=== PATIENT | female | born 1950 | race Hispanic/Latino ===

== ENCOUNTER 2019-10-14 06:56 | Observation (INO) | payer OTHER ==
[2019-10-11 13:02] VITALS: BP 163/57
[2019-10-11 13:12] LABS: APPEARANCE,URINE Clear (CLEAR); BILIRUBIN,URINE Negative (NEGATIVE); COLOR,URINE Dark Yellow (YELLOW); GLUCOSE, URINE (UA) Negative (NEGATIVE); KETONES,URINE Negative (NEGATIVE); LEUKOCYTE ESTERASE ,URINE Negative (NEGATIVE); NITRATE,URINE Negative (NEGATIVE); OCCULT BLOOD,URINE Negative (NEGATIVE); PROTEIN,URINE Negative (NEGATIVE)
[2019-10-11 13:25] LABS: BACTERIA,URINE Rare /HPF (None Seen); MUCUS,URINE Few LPF (None Seen); RBC,URINE 0-1 /HPF (0-1); SQUAMOUS EPITHELIAL CELL,UR Moderate /HPF (0-2); WBC,URINE 0-1 /HPF (0-1)
--- NOTE | 2019-10-11 14:30 | NUR ---
RE: NO BLOOD TRANSFUSIONS CALLED DR HAMEED AND INFORMED HIM THAT PATIENT IS REFUSING BLOOD TRANSFUSIONS AND PT'S HGB 13.2/HCT 39.0. PER DR HAMEED, OK TO PROCEED WITH SCHEDULED PROCEDURE.
[2019-10-14] VITALS (22 sets, daily range): BP systolic 121–146; BP diastolic 51–75
[~2019-10-14] VITALS: Ht 161.3 cm; Wt 78.3 kg
[2019-10-14] MEDS: CEFAZOLIN SODIUM 1 GM VIAL IVP SCH ×4 (05:00→22:53)
[~2019-10-14 06:56] MED LIST: BIMA12.5OS OU; ESCI20TA36 PO; ESTR-8 PO; MINE5OIN OU; POLY10DR31 OU
[2019-10-14] MEDS ORDERED: SODIUM CHLORIDE 0.9% 1000ML 1,000 ML IV ONE (07:35)
[2019-10-14] MEDS ORDERED: CEFAZOLIN SODIUM 1 GM VIAL ONE ×4 (07:41)
--- NOTE | 2019-10-14 07:45 | NUR ---
SKIN LEFT KNEE WIPED WITH PAWEL BY BERHANE
[2019-10-14] MEDS ORDERED: TRANEXAMIC ACID 1000MG/10ML ONE (08:33)
[2019-10-14] MEDS ORDERED: ONDANSETRON HCL 4 MG/2 ML VIAL ONE (08:38)
[2019-10-14] MEDS ORDERED: LIDOCAINE PF 2% 5ML ABBOJECT ONE (08:38)
[2019-10-14] MEDS ORDERED: MIDAZOLAM HCL 1 MG/ML 2ML VIAL ONE (08:38)
[2019-10-14] MEDS ORDERED: DEXAMETHASONE SOD PHOSPHATE 10MG/ML 1ML VIAL ONE (08:38)
[2019-10-14] MEDS ORDERED: PROPOFOL 10 MG/ML 20ML VIAL IV ONE (08:38)
[2019-10-14] MEDS ORDERED: ROCURONIUM 10MG/1ML SYR 10 MG/ML ML ONE ×2 (08:39→09:25)
[2019-10-14] MEDS ORDERED: FENTANYL CITRATE PF 50 MCG/1 ML 2ML VIAL ONE ×2 (08:39→09:24)
[2019-10-14] MEDS ORDERED: CALCIUM CARBONATE 500 MG TABLET PO PRN (10:45)
[2019-10-14] MEDS ORDERED: OXYCODONE HCL 5 MG TAB PO PRN (10:45)
[2019-10-14] MEDS ORDERED: FERROUS FUMARATE 324 MG TABLET PO PRN (10:45)
[2019-10-14] MEDS ORDERED: POTASSIUM CHLORIDE 10% ELIXIR 20 MEQ/15 ML UDCUP PO PRN (10:45)
[2019-10-14] MEDS ORDERED: ONDANSETRON HCL 4 MG/2 ML VIAL IVP PRN (10:45)
[2019-10-14] MEDS ORDERED: LIDOCAINE HCL-MPF 1% 2ML VIAL IV PRN (10:45)
[2019-10-14] MEDS: ACETAMINOPHEN EXTRA STRENGTH 500 MG TABLET PO SCH ×2 (10:45→18:32)
[2019-10-14] MEDS ORDERED: KETOROLAC TROMETHAMINE 15MG/ML IV PRN (10:45)
[2019-10-14] MEDS ORDERED: POTASSIUM CHLORIDE 20MEQ/100ML 100 ML IV PRN (10:45)
[2019-10-14] MEDS ORDERED: DiphenhydrAMINE HCL 50 MG/ML VIAL IVP PRN (10:45)
[2019-10-14] MEDS ORDERED: MEPERIDINE-PF 25 MG/ML SYG ONE ×2 (11:33→11:46)
[2019-10-14] MEDS: SODIUM CHLORIDE 0.9% 1000ML 1,000 ML IV SCH ×2 (13:00→20:45)
--- NOTE | 2019-10-14 14:43 | NUR ---
Initial Assessment Patient lives alone. No home services or DME. Patient was independent and drove prior to hospitalization. PCP is Dr. Mary Arvizu. Pharmacy is [facility] located on [address]. MD order for referral to [facility]. GONZALO/[employer] form signed and placed in chart. Referral sent including [facility]. Pending eval and insurance authorization. SW contacted Jennifer Rodrigues with [facility] and notified her of referral. BERNIE, Vidya Mello and patient's nurse, Nakita sebastian. Addendum: 10/14/19 at 1446 by DERW NATH Amended: Links added.
--- NOTE | 2019-10-14 17:14 | NUR ---
[id number] patient signed RAYMOND Letter, I faxed IM Letter to [phone] and placed in chart under consent tab
[2019-10-14] MEDS: PREGABALIN 25 MG CAP PO SCH (20:11)
[2019-10-14] MEDS: FAMOTIDINE 20MG TAB 20 MG TAB PO SCH (20:11)
[2019-10-14] MEDS: LATANOPROST 2.5 ML DROPS OU SCH (20:12)
[2019-10-14] MEDS: CELECOXIB 200 MG CAP PO SCH (20:12)
[2019-10-14] MEDS: ASPIRIN 81MG TAB.CHEW PO SCH (20:12)
[2019-10-14] MEDS: OXYCODONE HCL 5 MG TAB PO PRN (20:18)
[2019-10-14] MEDS: MINERAL OIL OU SCH (20:51)
[2019-10-14] MEDS: PETROLATUM WHITE OU SCH (20:51)
[2019-10-14] MEDS ORDERED: HYDROMORPHONE 1 MG/1 ML AMP IVP PRN (23:15)
[2019-10-14] MEDS: HYDROMORPHONE 1 MG/1 ML AMP IVP PRN (23:52)
[2019-10-15 00:04] VITALS: BP 143/60
[2019-10-15] MEDS: OXYCODONE HCL 5 MG TAB PO PRN ×3 (01:16→20:15)
[2019-10-15] MEDS: HYDROMORPHONE 1 MG/1 ML AMP IVP PRN ×3 (01:49→23:17)
[2019-10-15] MEDS: ACETAMINOPHEN EXTRA STRENGTH 500 MG TABLET PO SCH ×4 (02:33→22:07)
[2019-10-15] MEDS ORDERED: HYDROMORPHONE HCL 2 MG/ML VIAL ONE (03:40)
[2019-10-15 04:03] LABS: HEMATOCRIT 31.4 % (36-48); MEAN CORPUSCULAR HEMOGLOBIN 31.5 pg (27.0-33.0); MEAN CORPUSCULAR HGB CONC 34.1 g/dL (32.0-36.0); MEAN CORPUSCULAR VOLUME 92.4 fL (79-99); PLATELET COUNT (AUTO) 253 K/uL (130-400); RED CELL DISTRIBUTION WIDTH 13.6 % (11.0-15.5); WHITE BLOOD COUNT (AUTO) 7.5 K/uL (4.8-10.8)
[2019-10-15 04:04] VITALS: BP 126/60
[2019-10-15 04:25] LABS: CREATININE 0.4 mg/dL (0.5-1.5); POTASSIUM 3.5 mmol/L (3.5-5.1)
[2019-10-15] MEDS: SODIUM CHLORIDE 0.9% 1000ML 1,000 ML IV SCH (06:00)
[2019-10-15] MEDS: POTASSIUM CHLORIDE 20 MEQ ERTAB PO PRN ×2 (06:35→08:23)
[2019-10-15 07:57] VITALS: BP 140/61
[2019-10-15] MEDS: CELECOXIB 200 MG CAP PO SCH ×2 (08:20→19:46)
[2019-10-15] MEDS: PREGABALIN 25 MG CAP PO SCH ×2 (08:23→19:46)
[2019-10-15] MEDS: ASPIRIN 81MG TAB.CHEW PO SCH ×2 (08:23→19:46)
[2019-10-15] MEDS: FAMOTIDINE 20MG TAB 20 MG TAB PO SCH ×2 (08:24→19:46)
[2019-10-15] MEDS: POLYETHYLENE GLYCOL 3350 17 GM POWD.PACK PO SCH (08:24)
[2019-10-15] MEDS: M PROGEST ACET PO SCH (08:28)
[2019-10-15] MEDS: ESTROGEN CON PO SCH (08:28)
[2019-10-15] MEDS: POVIDONE OU SCH ×2 (08:28→20:13)
[2019-10-15] MEDS: POLYVINYL ALCOHOL OU SCH ×2 (08:28→20:13)
[2019-10-15] MEDS: PETROLATUM WHITE OU SCH ×2 (08:29→20:13)
[2019-10-15] MEDS: MINERAL OIL OU SCH ×2 (08:29→20:13)
[2019-10-15] MEDS ORDERED: CITALOPRAM 20 MG TABLET PO SCH (09:00)
[2019-10-15 11:34] VITALS: BP 124/57
[2019-10-15] MEDS: TRAMADOL HCL 50 MG TABLET PO PRN ×2 (12:19→19:47)
[2019-10-15] MEDS ORDERED: POLY17PO4 PO (13:12)
[2019-10-15] MEDS ORDERED: HYDR-4457 PO (13:12)
[2019-10-15] MEDS ORDERED: ASPI-1005 PO (13:12)
--- NOTE | 2019-10-15 14:28 | NUR ---
CM Note: [employer] pending ins auth CM spoke to Jennifer sullivan/[employer]. Pt pending ins auth at this time. Primary nurse aware. Dr Petty aware. CM to cont to follow up.
[2019-10-15 16:32] VITALS: BP 120/69
[2019-10-15] MEDS: LATANOPROST 2.5 ML DROPS OU SCH (19:47)
[2019-10-15 20:08] VITALS: BP 123/66
[2019-10-16 00:08] VITALS: BP 128/63
[2019-10-16] MEDS: HYDROMORPHONE 1 MG/1 ML AMP IVP PRN (02:01)
[2019-10-16 04:08] VITALS: BP 122/60
[2019-10-16] MEDS: ACETAMINOPHEN EXTRA STRENGTH 500 MG TABLET PO SCH (05:29)
[2019-10-16] MEDS: FAMOTIDINE 20MG TAB 20 MG TAB PO SCH (08:23)
[2019-10-16] MEDS: M PROGEST ACET PO SCH (08:24)
[2019-10-16] MEDS: POLYETHYLENE GLYCOL 3350 17 GM POWD.PACK PO SCH (08:24)
[2019-10-16] MEDS: PETROLATUM WHITE OU SCH (08:24)
[2019-10-16] MEDS: CELECOXIB 200 MG CAP PO SCH (08:24)
[2019-10-16] MEDS: MINERAL OIL OU SCH (08:24)
[2019-10-16] MEDS: ASPIRIN 81MG TAB.CHEW PO SCH (08:24)
[2019-10-16] MEDS: ESTROGEN CON PO SCH (08:24)
[2019-10-16] MEDS: PREGABALIN 25 MG CAP PO SCH (08:24)
[2019-10-16 08:29] VITALS: BP 110/65
[2019-10-16] MEDS ORDERED: CITALOPRAM 20 MG TABLET PO SCH (09:00)
--- NOTE | 2019-10-16 09:00 | NUR ---
CM Note: [employer] ins auth CM spoke to Jennifer sullivan/[facility], pt has ins auth. Safe to transfer via [facility] transport van. Dr Petty made aware, said ok for pt to transfer after AM PT. Primary nurse aware. CM to cont to follow up.
--- NOTE | 2019-10-16 10:45 | NUR ---
DISCHARGE/ REPORT DISCHARGE REPORT GIVEN TO BRENT WHITAKER AT [facility], INFORMED JULIANNE ABOUT MANDO DRESSING REMOVAL DATE (10/21/19), F/U APPOINTMENT, RX (ASPIRIN 81/NORCO/MIRALAX), PHYSICAL THERAPY (WBAT WITH WALKER). INFORMED THAT ORIGINAL RX AND COPY OF DR HAMEED D/C ORDERS WILL BE PLACED IN PT CHART COPY FOLDER. PERFORMED LEFT KNEE DRESSING CHANGE. LEFT KNEE INCISION NOTED TO BE ASYMPTOMATIC, APPROXIMATED, NO DRAINAGE NOTED. CLEANSED WITH BETADINE, APPLIED NEW MANDO DRESSING. MANDO DRESSING PUMP FLASHING GREEN. PT TOLERATED DRESSING CHANGE WELL. TEACH BACK METHOD USED TO PROVIDE D/C TEACHING REGARDING DR. HAMEED DISCHARGE ORDERS: MANDO DRESSING CARE, MANDO DRESSING REMOVAL DATE (10/21/19), F/U APPOINTMENT W/ DR. HAMEED, RX (ASPIRIN 81/NORCO/MIRALAX), PHYSICAL THERAPY (WBAT WITH WALKER). IV DISCONTINUED, CATHETER INTACT. PT VERBALIZED UNDERSTANDING OF D/C TEACHING. PT REPORT PAIN OF 0 OUT OF 10 AT TIME OF D/C. AWAITING [facility] DOOR MANAGER.
[2019-10-17] MEDS ORDERED: BISACODYL 10 MG SUPP.RECT RC PRN (10:45)
== END 2019-10-16 11:38 ==
LOC: DAH 06:56 → 4AH 06:57 → EDSTATUS 12:00
PROVIDERS: ADMIT Orthopaedic Surgery; ATTEND Orthopaedic Surgery
DX: M17.12 Unilateral primary osteoarthritis, left knee (principal); S83.242D Other tear of medial meniscus, current injury, left knee, subsequent encounter; M19.90 Unspecified osteoarthritis, unspecified site; E03.9 Hypothyroidism, unspecified; E11.9 Type 2 diabetes mellitus without complications; Z79.84 Long term (current) use of oral hypoglycemic drugs; Z90.710 Acquired absence of both cervix and uterus; Z79.899 Other long term (current) drug therapy; X58.XXXD Exposure to other specified factors, subsequent encounter; Y92.89 Other specified places as the place of occurrence of the external cause
CPT/HCPCS: 27447; 36415; 80048; 81001; 82948 ×9; 85027; 87641; 88304; 88311; 96374; 96375 ×2; 96376 ×3; 97039; 97116 ×4; 97161; 97530 ×4; A4215; A4221; A4222; A4223; A4600 ×2; A4649 ×3; A4930 ×3; A9272; C1776; G0378 ×46; G8978; G8979; G8980; G8981; G8982; G8983; J0690 ×7; J1100; J1170 ×6; J1885; J2001; J2175 ×2; J2250; J2405; J2704; J3010 ×2; J3490; J7030; J7120

== ENCOUNTER 2020-07-13 09:00 | Observation (INO) | payer OTHER ==
[~2020-07-13] VITALS: Ht 162.6 cm; Wt 76.7 kg
[~2020-07-13 09:00] MED LIST changes: -BIMA12.5OS OU; -ESCI20TA36 PO; -MINE5OIN OU; -POLY10DR31 OU
[2020-07-13 10:33] LABS: BASOPHILS % (AUTO) 0.4 % (0.0-5.0); HEMATOCRIT 38.9 % (36-48); LYMPHOCYTES % (AUTO) 16.8 % (21.0-51.0); MEAN CORPUSCULAR HEMOGLOBIN 31.7 pg (27.0-33.0); MEAN CORPUSCULAR HGB CONC 33.7 g/dL (32.0-36.0); MEAN CORPUSCULAR VOLUME 94.2 fL (79-99); MONOCYTES % (AUTO) 7.3 % (3.0-13.0); NEUTROPHILS % (AUTO) 72.3 % (40.0-77.0); PLATELET COUNT (AUTO) 296 K/uL (130-400); RED BLOOD CELL COUNT(AUTO) 4.13 MIL/uL (4.00-5.50); RED CELL DISTRIBUTION WIDTH 13.1 % (11.0-15.5); WHITE BLOOD COUNT (AUTO) 5.4 K/uL (4.8-10.8)
[2020-07-13 10:34] LABS: APPEARANCE,URINE Clear (CLEAR); BILIRUBIN,URINE Negative (NEGATIVE); COLOR,URINE Dark Yellow (YELLOW); GLUCOSE, URINE (UA) Negative (NEGATIVE); KETONES,URINE Trace mg/dL (NEGATIVE); LEUKOCYTE ESTERASE ,URINE Negative (NEGATIVE); NITRATE,URINE Negative (NEGATIVE); OCCULT BLOOD,URINE Negative (NEGATIVE); PROTEIN,URINE Negative (NEGATIVE)
[2020-07-13 10:35] LABS: BACTERIA,URINE Rare /HPF (None Seen); MUCUS,URINE Few LPF (None Seen); RBC,URINE 0-1 /HPF (0-1); SQUAMOUS EPITHELIAL CELL,UR Rare /HPF (0-2); WBC,URINE 0-1 /HPF (0-1)
[2020-07-13 10:42] LABS: INR 1.05 (0.85-1.15); PROTHROMBIN TIME 11.3 SEC (9.6-11.6)
[2020-07-13 11:10] LABS: CREATININE 0.6 mg/dL (0.5-1.5); POTASSIUM 3.8 mmol/L (3.5-5.1)
[2020-07-17 12:18] VITALS: BP 153/40
[2020-07-17] MEDS ORDERED: EZET1TAB13 PO (13:14)
[2020-07-17] MEDS ORDERED: METF-444 PO (13:14)
[2020-07-17] MEDS ORDERED: ESCI20TA PO (13:14)
[2020-07-17] MEDS ORDERED: THYR30TA2 PO (13:14)
[2020-07-17] MEDS ORDERED: NAPR-1023 PO (13:16)
[2020-07-20] VITALS (23 sets, daily range): BP systolic 114–148; BP diastolic 43–78
[2020-07-20] MEDS ORDERED: SODIUM CHLORIDE 0.9% 1000ML 1,000 ML IV ONE (06:47)
[2020-07-20] MEDS: CEFAZOLIN SODIUM 1 GM VIAL ONE ×2 (07:30→10:46)
[2020-07-20] MEDS ORDERED: CEFAZOLIN SODIUM 1 GM VIAL ONE (08:08)
[2020-07-20] MEDS ORDERED: KETOROLAC TROMETHAMINE 15MG/ML ONE (08:33)
[2020-07-20] MEDS ORDERED: CELECOXIB 200 MG CAP ONE (08:33)
[2020-07-20] MEDS ORDERED: ACETAMINOPHEN EXTRA STRENGTH 500 MG TABLET ONE (08:33)
[2020-07-20] MEDS ORDERED: TRANEXAMIC ACID 1000MG/10ML ONE ×2 (08:34→13:18)
[2020-07-20] MEDS ORDERED: SUCCINYLCHOLINE CHLORIDE 20 MG/ML 10 ML VIAL ONE (09:46)
[2020-07-20] MEDS ORDERED: LIDOCAINE PF 2% 5ML ABBOJECT ONE (09:46)
[2020-07-20] MEDS ORDERED: PROPOFOL 10 MG/ML 20ML VIAL IV ONE (09:46)
[2020-07-20] MEDS ORDERED: ROCURONIUM 10MG/1ML SYR 10 MG/ML ML ONE (09:46)
[2020-07-20] MEDS ORDERED: MIDAZOLAM HCL 1 MG/ML 2ML VIAL ONE (10:15)
[2020-07-20] MEDS ORDERED: EPHEDRINE SULFATE 50 MG/ML AMPULE ONE (10:43)
[2020-07-20] MEDS ORDERED: CEFAZOLIN SODIUM 1 GM VIAL IRRIG ONE (11:09)
[2020-07-20] MEDS ORDERED: FENTANYL CITRATE PF 50 MCG/1 ML 2ML VIAL ONE (11:34)
[2020-07-20] MEDS ORDERED: GLYCOPYRROLATE 1 MG/5 ML SYRINGE ONE (12:37)
[2020-07-20] MEDS ORDERED: NEOSTIGMINE 5MG/5ML SYR IV ONE (12:37)
[2020-07-20] MEDS ORDERED: ONDANSETRON HCL 4 MG/2 ML VIAL ONE (12:37)
[2020-07-20] MEDS ORDERED: OXYCODONE HCL 5 MG TAB PO PRN (13:00)
[2020-07-20] MEDS ORDERED: TRAMADOL HCL 50 MG TABLET PO PRN (13:00)
[2020-07-20] MEDS: SODIUM CHLORIDE 0.9% 1000ML 1,000 ML IV SCH ×2 (13:00→23:00)
[2020-07-20] MEDS ORDERED: ONDANSETRON HCL 4 MG/2 ML VIAL IVP PRN (13:00)
[2020-07-20] MEDS ORDERED: LIDOCAINE HCL-MPF 1% 2ML VIAL IV PRN (13:00)
[2020-07-20] MEDS ORDERED: POTASSIUM CHLORIDE 20MEQ/100ML 100 ML IV PRN (13:00)
[2020-07-20] MEDS ORDERED: FERROUS FUMARATE 324 MG TABLET PO PRN (13:00)
[2020-07-20] MEDS ORDERED: DiphenhydrAMINE HCL 50 MG/ML VIAL IVP PRN (13:00)
[2020-07-20] MEDS: ACETAMINOPHEN EXTRA STRENGTH 500 MG TABLET PO SCH ×2 (13:00→21:16)
[2020-07-20] MEDS ORDERED: POTASSIUM CHLORIDE 10% ELIXIR 20 MEQ/15 ML UDCUP PO PRN (13:00)
[2020-07-20] MEDS ORDERED: TEMAZEPAM 15 MG CAPSULE PO PRN (13:00)
[2020-07-20] MEDS ORDERED: CALCIUM CARBONATE 500 MG TABLET PO PRN (13:00)
[2020-07-20] MEDS ORDERED: POTASSIUM CHLORIDE 20 MEQ ERTAB PO PRN (13:00)
[2020-07-20] MEDS: KETOROLAC TROMETHAMINE 15MG/ML IV PRN ×2 (15:21→21:36)
[2020-07-20] MEDS: METFORMIN HCL 500 MG TABLET PO SCH (17:00)
[2020-07-20] MEDS: CEFAZOLIN SODIUM 1 GM VIAL IVP SCH (18:26)
[2020-07-20] MEDS: OXYCODONE HCL 5 MG TAB PO PRN (18:38)
[2020-07-20] MEDS: EZETIMIBE 10 MG TAB PO SCH (21:14)
[2020-07-20] MEDS: SIMVASTATIN 10 MG TABLET PO SCH (21:14)
[2020-07-20] MEDS: FAMOTIDINE 20MG TAB 20 MG TAB PO SCH (21:15)
[2020-07-20] MEDS: PREGABALIN 25 MG CAP PO SCH (21:15)
[2020-07-20] MEDS: CELECOXIB 200 MG CAP PO SCH (21:15)
[2020-07-21] VITALS (7 sets, daily range): BP systolic 113–140; BP diastolic 43–56
[2020-07-21] MEDS: CEFAZOLIN SODIUM 1 GM VIAL IVP SCH (01:56)
[2020-07-21 04:01] LABS: HEMATOCRIT 32.4 % (36-48); MEAN CORPUSCULAR HEMOGLOBIN 31.8 pg (27.0-33.0); MEAN CORPUSCULAR HGB CONC 33.6 g/dL (32.0-36.0); MEAN CORPUSCULAR VOLUME 94.5 fL (79-99); RED BLOOD CELL COUNT(AUTO) 3.43 MIL/uL (4.00-5.50); RED CELL DISTRIBUTION WIDTH 13.4 % (11.0-15.5); WHITE BLOOD COUNT (AUTO) 5.7 K/uL (4.8-10.8)
[2020-07-21 04:18] LABS: CREATININE 0.6 mg/dL (0.5-1.5); POTASSIUM 3.7 mmol/L (3.5-5.1)
[2020-07-21] MEDS: OXYCODONE HCL 5 MG TAB PO PRN ×4 (04:38→20:46)
[2020-07-21] MEDS: ACETAMINOPHEN EXTRA STRENGTH 500 MG TABLET PO SCH ×3 (04:39→20:50)
[2020-07-21] MEDS: THYROID PORK 30 MG PO SCH (06:30)
[2020-07-21] MEDS: PREGABALIN 25 MG CAP PO SCH ×2 (08:31→20:46)
[2020-07-21] MEDS: FAMOTIDINE 20MG TAB 20 MG TAB PO SCH ×2 (08:31→20:46)
[2020-07-21] MEDS: CELECOXIB 200 MG CAP PO SCH ×2 (08:31→20:46)
[2020-07-21] MEDS: POLYETHYLENE GLYCOL 3350 17 GM POWD.PACK PO SCH (08:32)
[2020-07-21] MEDS: METFORMIN HCL 500 MG TABLET PO SCH ×2 (08:32→17:27)
[2020-07-21] MEDS: CITALOPRAM 20 MG TABLET PO SCH (08:32)
[2020-07-21] MEDS: APIXABAN 2.5 MG TABLET PO SCH ×2 (08:32→20:45)
[2020-07-21] MEDS: SODIUM CHLORIDE 0.9% 1000ML 1,000 ML IV SCH (08:33)
[2020-07-21] MEDS: M PROGEST ACET PO SCH (08:33)
[2020-07-21] MEDS: ESTROGEN CON PO SCH (08:33)
[2020-07-21] MEDS: KETOROLAC TROMETHAMINE 15MG/ML IV PRN (11:36)
[2020-07-21] MEDS ORDERED: KETOROLAC TROMETHAMINE 30MG/ML IV PRN (16:00)
[2020-07-21] MEDS: EZETIMIBE 10 MG TAB PO SCH (20:46)
[2020-07-21] MEDS: SIMVASTATIN 10 MG TABLET PO SCH (20:46)
[2020-07-22 00:08] VITALS: BP 119/62
[2020-07-22 04:08] VITALS: BP 116/52
[2020-07-22] MEDS: ACETAMINOPHEN EXTRA STRENGTH 500 MG TABLET PO SCH ×2 (04:22→13:10)
[2020-07-22] MEDS: THYROID PORK 30 MG PO SCH (06:30)
[2020-07-22] MEDS: CELECOXIB 200 MG CAP PO SCH (07:45)
[2020-07-22] MEDS: FAMOTIDINE 20MG TAB 20 MG TAB PO SCH (07:45)
[2020-07-22] MEDS: PREGABALIN 25 MG CAP PO SCH (07:45)
[2020-07-22] MEDS: CITALOPRAM 20 MG TABLET PO SCH (07:45)
[2020-07-22] MEDS: APIXABAN 2.5 MG TABLET PO SCH (07:46)
[2020-07-22] MEDS: METFORMIN HCL 500 MG TABLET PO SCH ×2 (07:47→17:09)
[2020-07-22] MEDS: OXYCODONE HCL 5 MG TAB PO PRN ×2 (07:47→13:10)
[2020-07-22] MEDS: POLYETHYLENE GLYCOL 3350 17 GM POWD.PACK PO SCH (07:48)
[2020-07-22] MEDS: ESTROGEN CON PO SCH (07:48)
[2020-07-22] MEDS: M PROGEST ACET PO SCH (07:48)
[2020-07-22 08:42] VITALS: BP 120/58
[2020-07-22 11:42] VITALS: BP 119/58
[2020-07-22] MEDS ORDERED: FAMO20TA8 PO (15:40)
[2020-07-22] MEDS ORDERED: CELE200 PO (15:40)
[2020-07-22] MEDS ORDERED: OXYC5 PO (15:40)
[2020-07-22] MEDS ORDERED: APIX2.5T PO (15:40)
[2020-07-22 18:37] VITALS: BP 120/57
[2020-07-23] MEDS ORDERED: BISACODYL 10 MG SUPP.RECT RC PRN (13:00)
== END 2020-07-22 20:30 ==
LOC: EDSTATUS 09:00 → INTOOBSV 07-20 06:17 → DAHIP 07-20 06:17 → OBSVTOIN 07-20 06:17 → 3BH 07-20 14:33
PROVIDERS: ADMIT Orthopaedic Surgery; ATTEND Orthopaedic Surgery
DX: M17.11 Unilateral primary osteoarthritis, right knee (principal); Z20.828 Contact with and (suspected) exposure to other viral communicable diseases; S83.241A Other tear of medial meniscus, current injury, right knee, initial encounter; D64.9 Anemia, unspecified; E03.9 Hypothyroidism, unspecified; Z90.49 Acquired absence of other specified parts of digestive tract; Z96.652 Presence of left artificial knee joint; Z79.899 Other long term (current) drug therapy; X58.XXXA Exposure to other specified factors, initial encounter; Y93.89 Activity, other specified; Y92.89 Other specified places as the place of occurrence of the external cause
CPT/HCPCS: 27447; 36415 ×2; 80048 ×2; 81001; 82948 ×2; 85025; 85027; 85610; 87426; 87641; 88305; 88311; 96361 ×2; 96374; 96375; 96376 ×2; 97039 ×5; 97116 ×4; 97161; 97530 ×3; A4215; A4221; A4222; A4223; A4649 ×3; A4663; A4930 ×2; A9272; C1776; G0378 ×53; G8979; G8980; G8981; G8982; G8983; J0330; J0690 ×5; J1885 ×4; J2001; J2250; J2405; J2704; J2710; J3010; J3490 ×4; J7030; J7120; U0003

== ENCOUNTER → 2021-04-13 | Outpatient (CLI) | payer MEDICARE, OTHER ==
[~2021-04-13] MED LIST changes: +APIX2.5T PO; +CELE200 PO; +ESCI20TA PO; +EZET1TAB13 PO; +FAMO20TA8 PO; +NAPR-1023 PO; +OXYC5 PO; +THYR30TA2 PO
== END | disposition home or self-care (01) ==
LOC: SHCH 10:40
PROVIDERS: ATTEND Internal Medicine Cardiovascular Disease
DX: I65.23 Occlusion and stenosis of bilateral carotid arteries (principal)
CPT/HCPCS: 93880

== ENCOUNTER → 2021-06-08 | Outpatient (CLI) | payer OTHER | END | disposition home or self-care (01) | LOC: OIH 10:34 | PROVIDERS: ATTEND Internal Medicine Cardiovascular Disease | DX: Z13.6 Encounter for screening for cardiovascular disorders (principal); I25.10 Atherosclerotic heart disease of native coronary artery without angina pectoris | CPT/HCPCS: 75571 ==

== ENCOUNTER → 2022-07-04 | Outpatient (CLI) | payer MEDICARE ==
[~2022-07-04] MED LIST changes: +EZET-77 PO; -EZET1TAB13 PO
== END | disposition home or self-care (01) ==
LOC: SHCH 11:11
PROVIDERS: ATTEND Internal Medicine Cardiovascular Disease
DX: I51.7 Cardiomegaly (principal); I25.119 Atherosclerotic heart disease of native coronary artery with unspecified angina pectoris; E78.5 Hyperlipidemia, unspecified; R07.9 Chest pain, unspecified
CPT/HCPCS: 93306

== ENCOUNTER → 2022-09-20 | Outpatient (CLI) | payer MEDICARE ==
[2022-09-20 16:27] LABS: ALBUMIN 3.6 g/dL (3.5-5.0); CREATININE 0.6 mg/dL (0.5-1.5); POTASSIUM 3.9 mmol/L (3.5-5.1); TOTAL PROTEIN, SERUM 6.6 g/dL (6.0-8.3)
== END | disposition home or self-care (01) ==
LOC: LAB 11:53
PROVIDERS: ATTEND Internal Medicine Cardiovascular Disease
DX: I10 Essential (primary) hypertension (principal)
CPT/HCPCS: 36415; 80053

== ENCOUNTER → 2022-10-11 | Outpatient (CLI) | payer MEDICARE ==
[~2022-10-11] MED LIST changes: +IOHEXOL-350 50ML VIAL IV ONE
== END | disposition home or self-care (01) ==
LOC: RAH 08:45
PROVIDERS: ATTEND Internal Medicine Cardiovascular Disease
DX: I25.10 Atherosclerotic heart disease of native coronary artery without angina pectoris (principal)
CPT/HCPCS: 75574; Q9967

== ENCOUNTER → 2024-02-22 | Outpatient (CLI) | payer MEDICARE ==
[~2024-02-22] MED LIST changes: -IOHEXOL-350 50ML VIAL IV ONE
== END | disposition home or self-care (01) ==
LOC: SHCH 10:05
PROVIDERS: ATTEND Internal Medicine Cardiovascular Disease
DX: I87.2 Venous insufficiency (chronic) (peripheral) (principal); I73.9 Peripheral vascular disease, unspecified; I87.1 Compression of vein; M19.90 Unspecified osteoarthritis, unspecified site; D50.9 Iron deficiency anemia, unspecified; E03.9 Hypothyroidism, unspecified; E78.5 Hyperlipidemia, unspecified; E11.9 Type 2 diabetes mellitus without complications; E66.9 Obesity, unspecified; Z68.36 Body mass index [BMI] 36.0-36.9, adult; M79.605 Pain in left leg; M79.604 Pain in right leg; Z79.899 Other long term (current) drug therapy; Z96.653 Presence of artificial knee joint, bilateral
CPT/HCPCS: 93925; 93970

== ENCOUNTER → 2024-08-29 | Outpatient (CLI) | payer MEDICARE ==
--- NOTE | 2024-08-30 13:44 | HMCSR ---
APPROVED REPORT Bilateral Lower Extremity Venous Study for DVT., Venous Competence. Indications i87.1, i87.2 Vein Imaging CFV (R): Normal flow, augmentation and compression. No evidence of DVT. 9.4mm 1650ms of reflux. SFJ (R): Normal flow, augmentation and compression. No evidence of DVT. FEM (R): Normal flow, augmentation and compression. No evidence of DVT. POP (R): Normal flow, augmentation and compression. No evidence of DVT. DFV (R): Normal flow, augmentation and compression. No evidence of DVT. PTV (R): Normal flow, augmentation and compression. No evidence of DVT. Peroneals (R): Normal flow, augmentation and compression. No evidence of DVT. CFV (L): Normal flow, augmentation and compression. No evidence of DVT. 8.9mm 0.0ms of reflux. SFJ (L): Normal flow, augmentation and compression. No evidence of DVT. FEM (L): Normal flow, augmentation and compression. No evidence of DVT. POP (L): Normal flow, augmentation and compression. No evidence of DVT. DFV (L): Normal flow, augmentation and compression. No evidence of DVT. PTV (L): Normal flow, augmentation and compression. No evidence of DVT. Peroneals (L): Normal flow, augmentation and compression. No evidence of DVT. Technologist Impression Deep veins of the bilateral lower extremities appear patent and compressible without thrombus. Deep venosu relfux noted in the RCFV. Left common iliac and external iliac veins appear patent. RGSV junction 5.0mm 456ms thigh 4.1mm 0.0ms knee 3.1mm 0.0ms calf 2.1mm 467ms RSSV prox 2.0mm 0.0ms mid 2.2mm 0.0ms LGSV junction 5.9mm 344ms thigh 3.3mm 0.0ms knee 2.4mm 0.0ms calf 2.5mm 0.0ms LSSV prox 2.0mm 0.0ms mid 2.4mm 0.0ms Conclusion Deep venosu relfux noted in the RCFV. Left common iliac and external iliac veins appear patent. Conclusion Deep venosu relfux noted in the RCFV. Left common iliac and external iliac veins appear patent.
--- NOTE | 2024-08-30 13:46 | HMCSR ---
APPROVED REPORT EXAM: Two-dimensional and M-mode echocardiogram with Doppler and color Doppler. INDICATION ICD: R06.02 Shortness of breath 2D Dimensions RVDd4.6 cmLVEF(%)60.7 (>50%)LVED Vol(simp.)106.0 mL IVSd0.8 (0.7-1.1cm)FS(%)32 %LVES Vol(simp.)44.0 mL LVDd4.3 (3.8-5.6cm)Ao Root(2D)2.7 (2.0-3.7cm)LVEF(%, simp.)59 % PWd0.9 (0.7-1.1cm)LVOT diam1.9 (1.8-2.4cm)LA ESV INDEX (BP)49.98 mL/m2 LVDs2.9 (2.5-4.0cm)IVC diam2.4 cm Aortic Valve AoV Vmax1.5 m/Braulio Peak GR8.5 mmHgLVOT Vmax1.2 m/s AoV VTI0.4 mAo Mean GR4.9 mmHgLVOT VTI0.32 m VIKASH (VMAX)2.3 cm2AVA (VTI) 2.3 cm2 Mitral Valve MV E Ymhl437.5 cm/sDECEL Awtp960 ms MV A Vmax76.4 cm/sP 1/2 T56 ms E/A ratio1.4MVA (PHT)4.0 cm2 MR Max PG91 mmHg TDI E/E' Dvqimb30.8E/E' Qkajjxw31.7 Pulmonary Valve PV Vmax1.0 m/sPV VTI0.25 mPV Mean GR2 mmHg PV Peak GR3.6 mmHg Tricuspid Valve TR Vmax2.8 m/sRAP (EST) 8 ioKvYPOA42.4 mmHg TR Peak GR32.4 mmHg Left Ventricle The left ventricle structure and function is normal. There is normal LV segmental wall motion. There is normal left ventricular wall thickness. LVEF is 55-60%. Grade 2 diastolic dysfunction. Right Ventricle The right ventricle is moderately dilated. The right ventricular systolic function is normal. Atria The left atrium is severely dilated. The right atrium is moderately dilated. Aortic Valve Aortic valve is trileaflet. Aortic valve leaflets are sclerotic but open well. No aortic regurgitatio n is present. There is no aortic valvular stenosis. Mitral Valve The mitral valve is mildly thickened. Mitral regurgitation is trace. There is no mitral valve stenosi s. Tricuspid Valve The tricuspid valve leaflets appear normal. There is mild tricuspid regurgitation. Right ventricular systolic pressure is estimated at 40 mmHg. Pulmonic Valve Pulmonic valve is not well visualized. Great Vessels The aortic root is normal in size. IVC is dilated and collapses >50% with inspiration. Pericardium No pericardial effusion. Conclusion LVEF is 55-60%. Grade 2 diastolic dysfunction. There is normal LV segmental wall motion. The left atrium is severely dilated. Aortic valve is trileaflet. Aortic valve leaflets are sclerotic but open well. No pericardial effusion.
== END | disposition home or self-care (01) ==
LOC: SHCH 10:00
PROVIDERS: ATTEND Internal Medicine Cardiovascular Disease
DX: I08.3 Combined rheumatic disorders of mitral, aortic and tricuspid valves (principal); R06.02 Shortness of breath; I87.2 Venous insufficiency (chronic) (peripheral); I87.1 Compression of vein; K21.9 Gastro-esophageal reflux disease without esophagitis
CPT/HCPCS: 93306; 93925